=== PATIENT | male | born 1950 | race Two or more races ===

== ENCOUNTER 2018-10-30 12:49 | Outpatient (CLI) | payer MEDICARE, OTHER ==
--- NOTE | 2018-10-31 13:14 | Consultation ---
DATE OF CONSULTATION: 10/30/2018 CONSULTING PHYSICIAN: Sanchez Bhatia M.D. CHIEF COMPLAINT: Abdominal pain. HISTORY OF PRESENT ILLNESS: This is a very pleasant 68-year-old male with past medical hypertension and arthritis, admitted with complaint of epigastric pain for almost a month. The pain is not food-related, but he is also complaining of some nausea and also complaining of some GERD and burning in back of his throat. PAST MEDICAL HISTORY: 1. Hypertension. 2. Arthritis. PAST SURGICAL HISTORY: Cataract surgery. MEDICATIONS: Please see medication reconciliation list. FAMILY HISTORY: No family history of malignancies. Brother has skin problems. SOCIAL HISTORY: The patient drinks alcohol socially. Denies any IV drug abuse. Denies any tobacco abuse. ALLERGIES: No known drug allergies. REVIEW OF SYSTEMS: A 10-point review of systems was performed and pertinent positives in HPI. PHYSICAL EXAMINATION: VITAL SIGNS: Blood pressure is 124/72, pulse is 75, respirations 20, and temperature 97.8. HEENT: Normocephalic and atraumatic. Scleral icterus. NECK: Supple. No obvious evidence of lymphadenopathy. CARDIOVASCULAR: Regular rate and rhythm. Plus S1 and S2. LUNGS: Clear to auscultation bilaterally. ABDOMEN: Positive bowel sounds. Nontender. No rebound. No guarding. No peritoneal sign. EXTREMITIES: No cyanosis. No clubbing. No edema. ASSESSMENT AND PLAN: The patient is a 68-year-old male, complaining of epigastric abdominal pain given his age of 68. No recent history of endoscopy and no colonoscopy. Chronic GERD, the patient will benefit from both endoscopy and colonoscopy. We will plan to perform those next Sunday. He is scheduled for 11/08/2018 to come for endoscopy and colonoscopy. We are also going to order labs on the day of procedure including CBC, CMP, amylase, and lipase to work for epigastric abdominal pain. If the above studies are nonconclusive for source of his abdominal pain, we will recommend abdominal ultrasound also to evaluate for gallstones. I want to thank, for this kind referral. Sanchez Bhatia M.D. DR: AYDEE JOB#: [id number] CC:
== END 2018-10-30 14:49 | disposition home or self-care (01) ==
LOC: PAN 12:49
DX: R10.9 Unspecified abdominal pain (principal); K21.9 Gastro-esophageal reflux disease without esophagitis; I10 Essential (primary) hypertension; M19.90 Unspecified osteoarthritis, unspecified site
CPT/HCPCS: 99202

== ENCOUNTER 2018-11-20 07:17 | Day surgery (SDC) | payer MEDICARE, OTHER ==
[2018-11-20] VITALS (11 sets, daily range): BP systolic 123–157; BP diastolic 73–93
[~2018-11-20] VITALS: Ht 165.1 cm; Wt 81.2 kg
[2018-11-20] MEDS ORDERED: OMEPRAZOLE40 M1 ORAL (08:24)
[2018-11-20] MEDS ORDERED: NAPROXEN500 M2 ORAL (08:24)
[2018-11-20] MEDS ORDERED: ANAPROX DS PO (08:24)
[2018-11-20] MEDS ORDERED: MAPAP ARTHRITI650 MG ORAL (08:24)
[2018-11-20] MEDS ORDERED: CEPHALEXIN500 M1 ORAL (08:24)
[2018-11-20] MEDS ORDERED: GEMFIBROZIL600 MG ORAL (08:27)
--- NOTE | 2018-11-20 08:39 | Anethesia Preoperative Eval ---
Anesthesia Pre-op PMH/ROS General Date of Evaluation: Nov 20, 2018 Time of Evaluation: 08:37 Anesthesiologist: Isabel Bocanegra CRNA ASA Score: ASA 2 Mallampati Score Class I : Soft palate, uvula, fauces, pillars visible Class II: Soft palate, uvula, fauces visible Class III: Soft palate, base of uvula visible Class IV: Only hard plate visible Mallampati Classification: Class III Surgeon: Sriram Diagnosis: abdominal pain Surgical Procedure: EGD diagnostic, colonoscopy Anesthesia History: none Family History: no anesthesia problems Allergies: Coded Allergies: No Known Allergies (Unverified , 11/19/18) Medications: see eMAR Patient NPO?: Yes NPO Date: Nov 20, 2018 NPO Time: 00:00 Past Medical History Cardiovascular: Denies: HTN, CAD, SC, valve dz, arrhythmia, other Pulmonary: Denies: asthma, COPD, FABIANA, other Gastrointestinal/Genitourinary: Reports: GERD; Denies: CRI, ESRD, other Neurologic/Psychiatric: Denies: dementia, CVA, depression/anxiety, TIA, other Endocrine: Denies: DM, hypothyroidism, steroids, other HEENT: Reports: cataract (L), cataract (R) Hematology/Immune: Denies: anemia, DVT, bleeding disorder, other Musculoskeletal/Integumentary: Reports: OA PMH Narrative: as noted above PSxH Narrative: hand surgery Anesthesia Pre-op Phys. Exam Physician Exam Last Vital Signs Date Time Temp Pulse Resp B/P (MAP) Pulse Ox O2 Delivery O2 Flow Rate FiO2 11/20/18 08:25 Room Air Constitutional: NAD Neurologic: CN 2-12 intact Cardiovascular: RRR Respiratory: CTA Airway Exam Mallampati Score: Class III MO: full Neck: FROM TMD: > 3 FB ROM: full Teeth: missing Dentures: no upper, no lower Anesthesia Pre-op A/P Studies Pre-op Studies: EKG - SB Risk Assessment & Plan Assessment: ASA 2, ok to proceed Plan: MAC Status Change Before Surgery: No Pre-Antibiotics Given Within 1 Hr of Incision: Isabel Mckenzie CRNA Nov 20, 2018 08:39
[2018-11-20] MEDS ORDERED: Propofol 200mg/20ml IV ONE (09:00)
[2018-11-20] MEDS ORDERED: Lidocaine 1% MPF 10mg/ml 5ml ONE (09:00)
[2018-11-20 09:01] LABS: BASOPHILS % (AUTO) 0.6 % (0.0-2.0); HEMATOCRIT 41.5 % (42.0-52.0); HEMOGLOBIN 14.2 G/DL (14.2-18.0); LYMPHOCYTES % (AUTO) 19.9 % (20.0-45.0); MEAN CORPUSCULAR VOLUME 95 FL (80-99); NEUTROPHILS % (AUTO) 68.4 % (45.0-75.0); PLATELET COUNT 177 K/UL (150-450); RED BLOOD COUNT 4.38 M/UL (4.70-6.10); RED CELL DISTRIBUTION WIDTH 11.4 % (11.6-14.8); WHITE BLOOD COUNT 5.9 K/UL (4.8-10.8)
--- NOTE | 2018-11-20 09:12 | Pre-Procedure Note/Attestation ---
Pre-Procedure Note/Attestation Complete Prior to Procedure Planned Procedure: not applicable Procedure Narrative: esophagogastroduodenoscopy and colonoscopy Indications for Procedure Pre-Operative Diagnosis: screening colon, GERD Attestation I attest that I discussed the nature of the procedure; its benefits; risks and complications; and alternatives (and the risks and benefits of such alternatives ), prior to the procedure, with the patient (or the patient's legal u[place]s. representative). I attest that, if there was a reasonable possibility of needing a blood transfusion, the patient (or the patient's legal u.s. representative) was given the [facility] standardized written summary, pursuant to the [place] Blood Safety Act ([place] Health and Safety Code # 1645, as amended). I attest that I re-evaluated the patient just prior to the surgery and that there has been no change in the patient's H&P, except as documented below: Sanchez Bhatia MD Nov 20, 2018 09:12
--- NOTE | 2018-11-20 09:13 | Short Stay Surgery H&P ---
History of Present Illness History of Present Illness Chief Complaint see recent office note HPI Alfa Taylor is a 68 year old male who was admitted on for Abdominal Pain Patient History Allergies: Coded Allergies: No Known Allergies (Unverified , 11/19/18) Medication History Scheduled Cephalexin* (Cephalexin*), 500 MG ORAL DA, (Reported) Gemfibrozil (Gemfibrozil*), 600 MG ORAL BID, (Reported) Naproxen* (Naproxen*), 500 MG ORAL TWICE A DAY, (Reported) Omeprazole (Omeprazole), 40 MG ORAL DAILY, (Reported) [Anaprox Ds], 550 MG PO EVERY 12 HOURS, (Reported) Scheduled PRN Acetaminophen (Mapap Arthritis Pain), 650 MG ORAL NEEDED PRN for ARTHRITIS PAIN, (Reported) Physical Exam Vital Signs Last Vital Signs Date Time Temp Pulse Resp B/P (MAP) Pulse Ox O2 Delivery O2 Flow Rate FiO2 11/20/18 08:30 97.7 70 20 123/73 98 Room Air Labs Laboratory Tests Test 11/20/18 08:45 White Blood Count 5.9 K/UL (4.8-10.8) Red Blood Count 4.38 M/UL (4.70-6.10) L Hemoglobin 14.2 G/DL (14.2-18.0) Hematocrit 41.5 % (42.0-52.0) L Mean Corpuscular Volume 95 FL (80-99) Mean Corpuscular Hemoglobin 32.4 PG (27.0-31.0) H Mean Corpuscular Hemoglobin Concent 34.2 G/DL (32.0-36.0) Red Cell Distribution Width 11.4 % (11.6-14.8) L Platelet Count 177 K/UL (150-450) Mean Platelet Volume 8.0 FL (6.5-10.1) Neutrophils (%) (Auto) 68.4 % (45.0-75.0) Lymphocytes (%) (Auto) 19.9 % (20.0-45.0) L Monocytes (%) (Auto) 9.0 % (1.0-10.0) Eosinophils (%) (Auto) 2.0 % (0.0-3.0) Basophils (%) (Auto) 0.6 % (0.0-2.0) Sodium Level Pending Potassium Level Pending Chloride Level Pending Carbon Dioxide Level Pending Blood Urea Nitrogen Pending Creatinine Pending Estimat Glomerular Filtration Rate Pending Glucose Level Pending Calcium Level Pending Total Bilirubin Pending Aspartate Amino Transf (AST/SGOT) Pending Alanine Aminotransferase (ALT/SGPT) Pending Alkaline Phosphatase Pending Total Protein Pending Albumin Pending Globulin Pending Amylase Level Pending Lipase Pending Plan Attestation Are the patient's medical conditions optimized for surgery? Sanchez Bhatia MD Nov 20, 2018 09:13
[2018-11-20 09:18] LABS: ALANINE AMINOTRANSFERASE 26 U/L (12-78); ALBUMIN 3.7 G/DL (3.4-5.0); ALKALINE PHOSPHATASE 75 U/L (46-116); AMYLASE 63 U/L (25-115); ANION GAP 9 mmol/L (5-15); ASPARTATE AMINO TRANSFERASE 17 U/L (15-37); BILIRUBIN,TOTAL 1.3 MG/DL (0.2-1.0); BLOOD UREA NITROGEN 11 mg/dL (7-18); CALCIUM 8.8 MG/DL (8.5-10.1); CARBON DIOXIDE 27 MMOL/L (21-32); CHLORIDE 100 MMOL/L (98-107); CREATININE 0.8 MG/DL (0.55-1.30); POTASSIUM 4.1 MMOL/L (3.5-5.1); SODIUM 136 MMOL/L (136-145)
[2018-11-20 09:19] LABS: BILIRUBIN,DIRECT 0.2 MG/DL (0.0-0.3)
--- NOTE | 2018-11-20 09:48 | Endoscopy Procedure Note ---
Endoscopy Procedure Note General Indication for Procedure: screening colon, GERD Procedures Performed: EGD, colonoscopy Operative Findings/Diagnosis: colon polyp, gastritis Specimen: yes Pt Tolerated Procedure Well: Yes Estimated Blood Loss: none Anesthesia Anesthesiologist: jayleen Anesthesia: MAC Inserted Devices Implant(s) used?: No Quality Quality of Bowel Preparation: Good Did scope reach the cecum?: Yes Was there any complications?: No GI Core Measures 50 yrs or older w/o bx or poly: No 10yrs. F/U not recommended: Yes If not recommended, why?: Above average risk 10 yrs. F/U needed: Yes 18 years or older w/prev. colo: No Sanchez Bhatia MD Nov 20, 2018 09:48
--- NOTE | 2018-11-20 09:48 | Immediate Post-Op Evaluation ---
Immediate Post-Op Evalulation Immediate Post-Op Evalulation Procedure: EGD, colonoscopy, polypectomy Date of Evaluation: Nov 20, 2018 Time of Evaluation: 09:41 IV Fluids: 0.9 NS 500 ml Blood Pressure Systolic: 141 Blood Pressure Diastolic: 79 Pulse Rate: 66 Respiratory Rate: 22 O2 Sat by Pulse Oximetry: 99 Temperature (Fahrenheit): 97.1 Pain Score (1-10): 0 Nausea: No Vomiting: No Complications none Patient Status: awake, patent Given Within 1 Hr of Incision: Isabel Mckenzie CRNA Nov 20, 2018 09:48
--- NOTE | 2018-11-20 11:04 | 48 Hour Post Anesthesia Eval ---
Post Anesthesia Evaluation Procedure: EGD, colonoscopy, polypectomy Date of Evaluation: Nov 20, 2018 Time of Evaluation: 11:03 Blood Pressure Systolic: 134 0: 85 Pulse Rate: 61 Respiratory Rate: 16 Temperature (Fahrenheit): 97.4 O2 Sat by Pulse Oximetry: 100 Airway: patent Nausea: No Vomiting: No Pain Intensity: 0 Hydration Status: adequate Cardiopulmonary Status: stable Mental Status/LOC: patient returned to baseline Follow-up Care/Observations: per GI Post-Anesthesia Complications: none Follow-up care needed: N/A Isabel Bocanegra CRNA Nov 20, 2018 11:04
--- NOTE | 2018-11-20 16:30 | Procedure Note ---
DATE OF PROCEDURE: 11/20/2018 SURGEON: Sanchez Bhatia M.D. PROCEDURE: Upper endoscopy with biopsy and colonoscopy with snare polypectomy. ANESTHESIA: Per Isabel ORTIZ. INSTRUMENT: Olympus adult flexible upper endoscope and colonoscope. INDICATIONS: 1. Screening colonoscopy evaluation. 2. Chronic GERD. REASON FOR PROCEDURE: The procedure, risks, benefits, and possible consequences, including hemorrhage, aspiration, perforation and infection, and alternative treatments, were explained to the patient/legal guardian by Dr. Sanchez Bhatia and the patient/legal guardian understood and accepted these risks. PROCEDURE IN DETAIL: After informed consent was obtained and the patient was adequately sedated, the Olympus upper endoscope was advanced from the mouth into the second portion duodenum and retroflexion was performed in the stomach. The patient had evidence of 3 cm hiatal hernia. There was a single distal esophageal ulceration at the GE junction most likely from the reflux. There was irregular Z-line. A 20 centimeter from the incisors, there was a polyp in the esophagus which was removed with the cold biopsy forceps technique. This polyp measured roughly about 4 to 5 mm. In the stomach, there was diffuse gastritis. Random biopsy from antrum and body was obtained to rule out H. pylori infection. The rest of upper endoscopic examination grossly looked within normal limits. At this time, the upper endoscope was retrieved. The patient was turned over for colonoscopy. First, rectal exam was performed which was positive for internal hemorrhoids. Then, the scope was the rectum into the cecum documented by appendiceal orifice, ileocecal valve, and right upper quadrant palpation. The patient had one sessile polyp in the proximal ascending colon right under ileocecal valve, measured roughly about 7 mm in size which was removed with hot snare polypectomy technique. The rest of the colonoscopy examination grossly looked within normal limits. Retroflexion of rectum showed evidence of medium-sized internal hemorrhoids. SUMMARY OF FINDINGS: 1. Esophageal polyps status post biopsy. 2. Esophageal ulceration and irregular Z-line. 3. Small hiatal hernia. 4. Gastritis, status post biopsy. 5. One colonic polyp removed, see above for details. 6. Internal hemorrhoids. RECOMMENDATIONS: 1. Follow path. 2. Start the patient on PPI daily. 3. We will recommend repeat colonoscopy in 5 years. Sanchez Clary Bhatia DR: Kate JOB#: [id number] CC:
--- NOTE | 2018-11-21 16:01 | Cardiology Report ---
APPROVED REPORT EKG Measurement Heart [id number] Sinus bradycardia Otherwise normal ECG
== END 2018-11-20 10:55 | disposition home or self-care (01) ==
LOC: GAS 07:17
DX: Z12.11 Encounter for screening for malignant neoplasm of colon (principal); K22.10 Ulcer of esophagus without bleeding; K31.7 Polyp of stomach and duodenum; K21.9 Gastro-esophageal reflux disease without esophagitis; K44.9 Diaphragmatic hernia without obstruction or gangrene; K63.5 Polyp of colon; K64.8 Other hemorrhoids; R10.9 Unspecified abdominal pain; R00.1 Bradycardia, unspecified; M19.90 Unspecified osteoarthritis, unspecified site; Z79.899 Other long term (current) drug therapy; K29.50 Unspecified chronic gastritis without bleeding; D13.0 Benign neoplasm of esophagus
CPT/HCPCS: 36415; 43239; 45384; 80053; 82150; 82248; 83690; 85025; 93005; J2704; 94003; 94150

== ENCOUNTER 2018-12-12 13:30 | Outpatient (CLI) | payer MEDICARE, OTHER ==
[~2018-12-12 13:30] MED LIST: ANAPROX DS PO; CEPHALEXIN500 M1 ORAL; GEMFIBROZIL600 MG ORAL; MAPAP ARTHRITI650 MG ORAL; NAPROXEN500 M2 ORAL; OMEPRAZOLE40 M1 ORAL
--- NOTE | 2018-12-12 14:01 | General Progress Note ---
Assessment/Plan Problem List: (1) Gastritis ICD Codes: K29.70 - Gastritis, unspecified, without bleeding SNOMED: 4458691 (2) Esophagitis ICD Codes: K20.9 - Esophagitis, unspecified SNOMED: 34137928 (3) Colon polyps ICD Codes: K63.5 - Polyp of colon SNOMED: 90433135 Assessment/Plan: ppi daily reflux measures repeat colonoscopy in 5 years Subjective ROS Limited/Unobtainable: Yes Allergies: Coded Allergies: No Known Allergies (Unverified , 11/19/18) Objective General Appearance: alert EENT: normal ENT inspection Neck: supple Cardiovascular: normal rate Respiratory/Chest: lungs clear Abdomen: normal bowel sounds, non tender, soft Extremities: non-tender Sanchez Bhatia MD Dec 12, 2018 14:01
== END 2018-12-12 15:53 | disposition home or self-care (01) ==
LOC: PAN 13:30
DX: K29.70 Gastritis, unspecified, without bleeding (principal); K20.9 Esophagitis, unspecified; K63.5 Polyp of colon
CPT/HCPCS: 99212